=== PATIENT | female | born 1990 | race Caucasian/White ===

== ENCOUNTER 2017-09-21 22:24 | Inpatient (IN) | payer MEDICAID ==
[2017-09-21] MEDS ORDERED: LABETALOL HCL 20MG INJ (22:43)
[2017-09-21] MEDS ORDERED: MAGNESIUM SULFATE 4 GM/100 ML 100 ML (22:43)
[2017-09-21] MEDS ORDERED: CA GLUCONATE (GM) 10% 10ML INJ IV (23:00)
[2017-09-21] MEDS: LABETALOL HCL 20MG INJ IV (23:07)
[2017-09-21] MEDS: MAGNESIUM SULFATE 4 GM/100 ML 100 ML IV (23:08)
[2017-09-21] MEDS: LACTATED RINGER'S 1,000 ML IV (23:09)
[2017-09-21 23:17] LABS: ADD MAN DIFF? NO
[2017-09-21 23:20] LABS: BASOPHILS % 0.1 % (0.0-2.0); EOSINOPHILS % 0.4 % (0.0-7.0); HEMATOCRIT 31.9 % (37.0-47.0); HEMOGLOBIN 11.2 g/dl (12.0-16.0); LYMPHOCYTES # 2.6 10^3/ul (0.8-2.9); LYMPHOCYTES % 32.9 % (15.0-51.0); MEAN CORPUSCULAR HEMOGLOBIN 29.9 pg (29.0-33.0); MEAN CORPUSCULAR HGB CONC 35.1 g/dl (32.0-37.0); MEAN CORPUSCULAR VOLUME 85.3 fl (82.0-101.0); MEAN PLATELET VOLUME 11.6 fl (7.4-10.4); MONOCYTE # 0.4 10^3/ul (0.3-0.9); MONOCYTES % 5.1 % (0.0-11.0); NEUTROPHIL # 4.9 10^3/ul (1.6-7.5); NUCLEATED RED BLOOD CELLS% 0.3 /100WBC (0.0-0.0); PLATELET COUNT 152 10^3/UL (140-415); RED BLOOD COUNT 3.74 10^6/ul (4.20-5.40); RED CELL DISTRIBUTION WIDTH 12.7 % (11.5-14.5)
[2017-09-21] MEDS ORDERED: MISOPROSTOL 200 MCG TAB PR (23:30)
[2017-09-21] MEDS ORDERED: METHYLERGONOVINE 0.2 MG INJ IM (23:30)
[2017-09-21] MEDS ORDERED: OXYTOCIN 30 UNITS/LR 500 ML IV ×2 (23:30)
[2017-09-21] MEDS ORDERED: CARBOPROST 250 MCG INJ IM (23:30)
[2017-09-21 23:39] LABS: INR 0.88; PT RATIO 0.9
[2017-09-21 23:40] LABS: PARTIAL THROMBOPLASTIN TIME 25.3 Sec (25.0-35.0)
[2017-09-21 23:45] LABS: ALANINE AMINOTRANSFERASE 39 IU/L (13-69); ALBUMIN 3.4 g/dl (3.3-4.9); ALKALINE PHOSPHATASE 147 IU/L (42-121); ANION GAP 11 (8-16); ASPARTATE AMINO TRANSFERASE 32 IU/L (15-46); BILIRUBIN,INDIRECT 0.5 mg/dl (0-1.1); BILIRUBIN,TOTAL 0.5 mg/dl (0.2-1.3); BLOOD UREA NITROGEN 10 mg/dl (7-20); CALCIUM 9.3 mg/dl (8.4-10.2); CARBON DIOXIDE 21 mmol/L (21-31); CHLORIDE 110 mmol/L (97-110); CREATININE 0.56 mg/dl (0.44-1.00); GLUCOSE 100 mg/dl (70-220); POTASSIUM 4.1 mmol/L (3.5-5.1); SODIUM 138 mmol/L (135-144); TOTAL PROTEIN 6.8 g/dl (6.1-8.1)
[2017-09-21] MEDS: MAGNESIUM SULFATE 20 GM/500 ML 500 ML IV (23:49)
[2017-09-22 00:01] LABS: ADD UMIC YES; UR ASCORBIC ACID NEGATIVE (NEGATIVE); UR BACTERIA FEW /HPF (NONE SEEN); UR BILIRUBIN (Dip) NEGATIVE (NEGATIVE); UR BLOOD (Dip) NEGATIVE (NEGATIVE); UR CLARITY CLEAR (CLEAR); UR COLOR YELLOW (YELLOW); UR GLUCOSE (Dip) NEGATIVE (NEGATIVE); UR KETONES (Dip) NEGATIVE (NEGATIVE); UR LEUKOCYTE ESTERASE (Dip) 1+ Leu/ul (NEGATIVE); UR NITRITE (Dip) NEGATIVE (NEGATIVE); UR RBC 0 /HPF (0-5); UR SPECIFIC GRAVITY (Dip) 1.008 (1.003-1.030); UR SQUAMOUS EPITHELIAL CELL FEW /HPF (FEW); UR TOTAL PROTEIN (Dip) 1+ mg/dl (NEGATIVE); UR UROBILINOGEN (Dip) NEGATIVE (NEGATIVE); UR WBC 2 /HPF (0-5)
[2017-09-22] MEDS: ACETAMINOPHEN 325 MG TAB PO (00:07)
[2017-09-22] MEDS: BETAMET NA PHOS/AC(6 MG/ML) 5ML INJ IM ×2 (00:16→08:28)
[2017-09-22] MEDS ORDERED: GLUCAGON 1 MG INJ IM (04:00)
[2017-09-22] MEDS ORDERED: GLUCOSE GEL 15 GRAM TUBE PO ×2 (04:00)
[2017-09-22] MEDS ORDERED: GLUCOSE GEL 15 GRAM TUBE BUCCAL (04:00)
[2017-09-22] MEDS ORDERED: DEXTROSE 50% 50 ML SYRINGE IV ×2 (04:00)
[2017-09-22 04:06] LABS: HEPATITIS B SURFACE ANTIGEN NEGATIVE (NEGATIVE)
[2017-09-22] MEDS: HYDROCODONE/APAP (5/325) TAB PO (04:14)
[2017-09-22] MEDS: INSULIN ASPART [NOVOLOG] 3 ML PEN SC ×5 (04:25→21:20)
[2017-09-22 07:50] LABS: MAGNESIUM 4.9 mg/dl (1.7-2.5)
[2017-09-22] MEDS: MAGNESIUM SULFATE 20 GM/500 ML 500 ML IV ×2 (09:09→21:22)
[2017-09-22] MEDS: LACTATED RINGER'S 1,000 ML IV (11:10)
[2017-09-22] MEDS ORDERED: OXYTOCIN 30 UNITS/LR 500 ML IV ×2 (11:34→13:30)
[2017-09-22] MEDS ORDERED: OXYTOCIN 10 UNIT INJ ×3 (11:35→12:22)
[2017-09-22] MEDS ORDERED: ONDANSETRON 4 MG INJ (11:35)
[2017-09-22] MEDS ORDERED: METOCLOPRAMIDE 10 MG INJ (11:35)
[2017-09-22] MEDS ORDERED: morphine SULFATE/PF (10 MG/10 ML) INJ (11:35)
[2017-09-22] MEDS ORDERED: BUPIVACAINE 0.75%/DEXT (SPINAL) 2 ML INJ (11:36)
[2017-09-22] MEDS: CEFAZOLIN 2 GM/50 ML (PMX) 50 ML IV (11:40)
[2017-09-22] MEDS ORDERED: EPHEDrine 50 MG INJ (12:13)
[2017-09-22] MEDS ORDERED: DEXTROSE 5%-LR 1,000 ML IV (13:08)
[2017-09-22] MEDS: MISOPROSTOL 200 MCG TAB SL (13:22)
[2017-09-22] MEDS ORDERED: EPHEDrine SULFATE 50 MG/5 ML SYG IV (13:30)
[2017-09-22] MEDS ORDERED: MISOPROSTOL 200 MCG TAB PR (13:30)
[2017-09-22] MEDS ORDERED: DIPHENHYDRAMINE 50 MG INJ IV (13:30)
[2017-09-22] MEDS ORDERED: morphine 2 MG INJ IV ×2 (13:30)
[2017-09-22] MEDS ORDERED: NALOXONE (0.4 MG/ML) INJ IV (13:30)
[2017-09-22] MEDS ORDERED: ONDANSETRON 4 MG INJ IV (13:30)
[2017-09-22] MEDS ORDERED: METHYLERGONOVINE 0.2 MG TAB PO (13:30)
[2017-09-22] MEDS ORDERED: CARBOPROST 250 MCG INJ IM (13:30)
[2017-09-22] MEDS: morphine SULFATE/PF (10 MG/10 ML) INJ SPINAL (13:30)
[2017-09-22] MEDS: MISOPROSTOL 200 MCG TAB PR (14:20)
[2017-09-22] MEDS: ACCU-CHEK XX (14:21)
[2017-09-22 14:31] LABS: MAGNESIUM 4.2 mg/dl (1.7-2.5)
[2017-09-22] MEDS: KETOROLAC 30 MG INJ IV (14:39)
[2017-09-22 18:34] LABS: MAGNESIUM 5.2 mg/dl (1.7-2.5)
[2017-09-22] MEDS: SENNA/DOCUSATE NA (8.6MG/50MG) TAB PO (21:18)
[2017-09-23 01:11] LABS: MAGNESIUM 5.4 mg/dl (1.7-2.5)
[2017-09-23] MEDS: INSULIN ASPART [NOVOLOG] 3 ML PEN SC ×4 (01:22→13:00)
[2017-09-23] MEDS: OXYTOCIN 30 UNITS/LR 500 ML IV (01:24)
[2017-09-23] MEDS: MAGNESIUM SULFATE 20 GM/500 ML 500 ML IV ×2 (03:58→07:24)
[2017-09-23] MEDS: KETOROLAC 30 MG INJ IV ×2 (04:02→12:27)
[2017-09-23 06:10] LABS: ADD MAN DIFF? NO
[2017-09-23 06:16] LABS: BASOPHILS % 0.1 % (0.0-2.0); HEMATOCRIT 28.1 % (37.0-47.0); HEMOGLOBIN 10.1 g/dl (12.0-16.0); LYMPHOCYTES # 1.8 10^3/ul (0.8-2.9); MEAN CORPUSCULAR HEMOGLOBIN 30.3 pg (29.0-33.0); MEAN CORPUSCULAR HGB CONC 35.9 g/dl (32.0-37.0); MEAN CORPUSCULAR VOLUME 84.4 fl (82.0-101.0); MEAN PLATELET VOLUME 11.2 fl (7.4-10.4); MONOCYTE # 0.6 10^3/ul (0.3-0.9); NEUTROPHIL # 11.5 10^3/ul (1.6-7.5); NEUTROPHILS % 82.5 % (39.0-77.0); PLATELET COUNT 131 10^3/UL (140-415); RED BLOOD COUNT 3.33 10^6/ul (4.20-5.40); RED CELL DISTRIBUTION WIDTH 12.7 % (11.5-14.5)
[2017-09-23 07:18] LABS: MAGNESIUM 5.9 mg/dl (1.7-2.5)
[2017-09-23] MEDS: LACTATED RINGER'S 1,000 ML IV ×3 (07:41→20:16)
[2017-09-23] MEDS: metFORMIN 500 MG TAB PO ×2 (09:25→17:57)
[2017-09-23] MEDS: SENNA/DOCUSATE NA (8.6MG/50MG) TAB PO ×2 (09:25→21:10)
[2017-09-23] MEDS: LANOLIN 7 GM TUBE TOP (09:37)
[2017-09-23] MEDS: HYDROCODONE/APAP (5/325) TAB PO ×3 (12:00→23:44)
[2017-09-23] MEDS ORDERED: HYDROCODONE/APAP (5/325) TAB PO (12:00)
[2017-09-23 13:26] LABS: MAGNESIUM 6.1 mg/dl (1.7-2.5)
[2017-09-23] MEDS: IBUPROFEN 800 MG TAB PO ×2 (14:00→17:18)
[2017-09-23 17:32] LABS: RAPID PLASMA REAGIN NONREACTIVE (NR)
[2017-09-24] MEDS: IBUPROFEN 800 MG TAB PO ×3 (04:54→22:00)
[2017-09-24] MEDS: HYDROCODONE/APAP (5/325) TAB PO ×4 (04:55→22:00)
[2017-09-24] MEDS: metFORMIN 500 MG TAB PO ×2 (08:08→18:12)
[2017-09-24] MEDS: SENNA/DOCUSATE NA (8.6MG/50MG) TAB PO ×2 (08:35→20:18)
[2017-09-24] MEDS: LACTATED RINGER'S 1,000 ML IV (23:30)
[2017-09-25] MEDS: HYDROCODONE/APAP (5/325) TAB PO ×6 (04:33→21:53)
[2017-09-25] MEDS: IBUPROFEN 800 MG TAB PO ×3 (06:00→21:52)
[2017-09-25] MEDS: MEASLES,MUMPS,RUBELLA VACCINE INJ SC* (09:00)
[2017-09-25] MEDS: DIPHTH/TET/ACEL PERTUSS (ADULT) 0.5 ML VIAL IM* (09:00)
[2017-09-25] MEDS: SENNA/DOCUSATE NA (8.6MG/50MG) TAB PO ×2 (09:25→21:10)
[2017-09-25] MEDS: metFORMIN 500 MG TAB PO ×2 (09:25→17:59)
[2017-09-25] MEDS: LACTATED RINGER'S 1,000 ML IV (12:50)
[2017-09-25] MEDS: LABETALOL 200 MG TAB PO ×2 (16:09→21:11)
[2017-09-26] MEDS: LABETALOL 200 MG TAB PO ×4 (04:28→20:57)
[2017-09-26] MEDS: IBUPROFEN 800 MG TAB PO ×3 (05:49→22:26)
[2017-09-26] MEDS: HYDROCODONE/APAP (5/325) TAB PO ×3 (05:50→22:26)
[2017-09-26] MEDS ORDERED: LABETALOL HCL 20MG INJ (06:18)
[2017-09-26] MEDS ORDERED: MAGNESIUM SULFATE 4 GM/100 ML 100 ML (06:20)
[2017-09-26] MEDS: LACTATED RINGER'S 1,000 ML IV ×2 (06:30→16:38)
[2017-09-26] MEDS: LABETALOL HCL 20MG INJ IV (06:35)
[2017-09-26] MEDS: MAGNESIUM SULFATE 4 GM/100 ML 100 ML IVPB (06:45)
[2017-09-26] MEDS: MAGNESIUM SULFATE 20 GM/500 ML 500 ML IV ×2 (07:12→16:40)
[2017-09-26] MEDS: metFORMIN 500 MG TAB PO ×2 (08:04→17:41)
[2017-09-26] MEDS: SENNA/DOCUSATE NA (8.6MG/50MG) TAB PO ×2 (09:06→21:00)
[2017-09-26 11:21] LABS: ALANINE AMINOTRANSFERASE 121 IU/L (13-69); ALBUMIN 3.3 g/dl (3.3-4.9); ALKALINE PHOSPHATASE 96 IU/L (42-121); ANION GAP 11 (8-16); ASPARTATE AMINO TRANSFERASE 92 IU/L (15-46); BILIRUBIN,INDIRECT 0.2 mg/dl (0-1.1); BILIRUBIN,TOTAL 0.2 mg/dl (0.2-1.3); BLOOD UREA NITROGEN 11 mg/dl (7-20); CALCIUM 8.4 mg/dl (8.4-10.2); CARBON DIOXIDE 25 mmol/L (21-31); CHLORIDE 104 mmol/L (97-110); CREATININE 0.57 mg/dl (0.44-1.00); GLUCOSE 186 mg/dl (70-220); LACTATE DEHYDROGENASE 461 IU/L (313-618); POTASSIUM 4.5 mmol/L (3.5-5.1); SODIUM 135 mmol/L (135-144); TOTAL PROTEIN 6.3 g/dl (6.1-8.1)
[2017-09-26 12:51] LABS: FIBRIN SPLIT PRODUCT <10 ug/ml (<10)
[2017-09-26 18:04] LABS: MAGNESIUM 5.2 mg/dl (1.7-2.5)
[2017-09-27 01:12] LABS: MAGNESIUM 5.5 mg/dl (1.7-2.5)
[2017-09-27] MEDS: HYDROCODONE/APAP (5/325) TAB PO ×2 (06:00→14:00)
[2017-09-27] MEDS: IBUPROFEN 800 MG TAB PO ×2 (06:06→14:49)
[2017-09-27] MEDS: SENNA/DOCUSATE NA (8.6MG/50MG) TAB PO (08:45)
[2017-09-27] MEDS: metFORMIN 500 MG TAB PO (08:45)
[2017-09-27] MEDS: LABETALOL 200 MG TAB PO ×2 (08:46→13:08)
== END 2017-09-27 16:18 | disposition home or self-care (01) | DRG 765 ==
LOC: OBT 22:24 → L-D 22:25 → OBT 23:24 → PP1 09-22 15:41 → L-D 23:24
PROC: 10D00Z1 Extraction of Products of Conception, Low, Open Approach (ICD-10-PCS; principal; 2017-09-22 12:00)
PROC: 3E033VJ Introduction of Other Hormone into Peripheral Vein, Percutaneous Approach (ICD-10-PCS; 2017-09-22 12:00)
DX: O34.211 Maternal care for low transverse scar from previous cesarean delivery (principal); O60.14X0 Preterm labor third trimester with preterm delivery third trimester, not applicable or unspecified; O24.12 Pre-existing type 2 diabetes mellitus, in childbirth; O14.14 Severe pre-eclampsia complicating childbirth; E11.9 Type 2 diabetes mellitus without complications; Z3A.35 35 weeks gestation of pregnancy; Z37.0 Single live birth
CPT/HCPCS: 36415; 76815; 76818; 80053; 80069; 80076; 81001; 82962; 83615; 83735; 84560; 85025; 85362; 85384; 85610; 85730; 86592; 86850; 86900; 86901; 87081; 87340; 88307; 96365; 96374; 99464